=== PATIENT | female | born 1990 | race Caucasian/White ===

== ENCOUNTER 2018-08-08 21:39 | Emergency (ER) | payer OTHER ==
[~2018-08-08] VITALS: Ht 160 cm; Wt 57.1 kg
[2018-08-08] MEDS ORDERED: BUTALB-APAP-CA1 EACH PO (22:04)
[2018-08-08] MEDS ORDERED: NEURONTIN 300300 M1 PO (22:04)
[2018-08-08] MEDS ORDERED: ELFOLATE7.5 MG PO (22:04)
[2018-08-08] MEDS ORDERED: WELLBUTRIN SR150 MG PO (22:05)
[2018-08-08 22:32] LABS: URINE BILIRUBIN NEGATIVE (Negative); URINE BLOOD NEGATIVE (Negative); URINE CLARITY CLEAR; URINE COLOR YELLOW; URINE GLUCOSE-RANDOM NEGATIVE (Negative); URINE KETONES NEGATIVE (Negative); URINE LEUKOCYTES-REFLEX NEGATIVE (Negative); URINE NITRITE-REFLEX NEGATIVE (Negative); URINE PROTEIN NEGATIVE (Negative); URINE SPECIFIC GRAVITY 1.015 (1.005-1.030); URINE UROBILINOGEN 0.2 E.U./dl (0.2-1.0)
[2018-08-08 22:53] LABS: ABSOLUTE EOSINOPHILS 0.1 thou/uL (0.0-0.7); ABSOLUTE LYMPHOCYTES 2.7 thou/uL (0.8-5.3); ABSOLUTE MONOCYTES 0.4 thou/uL (0.0-1.2); ABSOLUTE NEUTROPHILS 3.5 thou/uL (1.6-8.1); BASOPHILS 0.6 %; EOSINOPHILS 1.5 %; HEMOGLOBIN 15.2 gm/dL (12.0-15.0); LYMPHOCYTES 39.4 %; MCHC 34.5 g/dL (28.0-37.0); MCV 89.8 fL (80.0-100.0); MONOCYTES 6.1 %; MPV 9.9 fl. (7.2-11.1); NUCLEATED RBCS 0 /100WBC; PLATELET COUNT* 242 thou/uL (150-400); POLYS 52.4 %; RDW-CV 12.4 % (10.5-14.5); WBC 6.8 thou/uL (4.0-11.0)
[2018-08-08 23:11] LABS: CREATININE 1.1 mg/dL (0.6-1.3); POTASSIUM 3.3 mmol/L (3.5-5.1)
[2018-08-08 23:16] LABS: ALBUMIN 4.2 g/dL (3.4-5.0); TOTAL BILIRUBIN 0.3 mg/dL (<0.1-1.0); TOTAL PROTEIN 7.3 g/dL (6.4-8.2)
[2018-08-09] MEDS ORDERED: ZOFRAN ODT4 MG SUBLING (00:24)
[2018-08-09 00:35] VITALS: BP 118/48
[2018-08-09 01:09] LABS: AMP/METHAMP Negative (Negative); BARBITURATES POSITIVE (Negative); BENZODIAZEPINES Negative (Negative); COCAINE Negative (Negative); METHADONE Negative (Negative); OPIATES Negative (Negative); PCP Negative (Negative); THC POSITIVE (Negative)
== END 2018-08-09 00:35 | disposition home or self-care (01) ==
LOC: M.ERS 21:39
PROVIDERS: Family Medicine
DX: R10.13 Epigastric pain (principal); R11.2 Nausea with vomiting, unspecified; R19.7 Diarrhea, unspecified; M79.7 Fibromyalgia; F41.9 Anxiety disorder, unspecified; F32.9 Major depressive disorder, single episode, unspecified; G43.909 Migraine, unspecified, not intractable, without status migrainosus; Z79.899 Other long term (current) drug therapy

== ENCOUNTER 2019-06-29 13:01 | Emergency (ER) | payer OTHER ==
[~2019-06-29] VITALS: Ht 157.5 cm; Wt 60.3 kg
[~2019-06-29 13:01] MED LIST: BUTALB-APAP-CA1 EACH PO; ELFOLATE7.5 MG PO; NEURONTIN 300300 M1 PO; WELLBUTRIN SR150 MG PO; ZOFRAN ODT4 MG SUBLING
[2019-06-29] MEDS ORDERED: AUGMENTIN 875-1 EACH PO (13:18)
[2019-06-29 14:01] LABS: ABSOLUTE EOSINOPHILS 0.2 thou/uL (0.0-0.7); ABSOLUTE LYMPHOCYTES 1.4 thou/uL (0.8-5.3); ABSOLUTE MONOCYTES 0.4 thou/uL (0.0-1.2); ABSOLUTE NEUTROPHILS 8.1 thou/uL (1.6-8.1); BASOPHILS 0.3 %; EOSINOPHILS 2.5 %; HEMATOCRIT 46.9 % (37.0-47.0); HEMOGLOBIN 16.2 gm/dL (12.0-15.0); LYMPHOCYTES 13.9 %; MCHC 34.6 g/dL (28.0-37.0); MCV 86.8 fL (80.0-100.0); MONOCYTES 3.8 %; MPV 9.7 fl. (7.2-11.1); NUCLEATED RBCS 0 /100WBC; PLATELET COUNT* 302 thou/uL (150-400); POLYS 79.5 %; RBC 5.41 mil/uL (4.20-5.00); RDW-CV 12.9 % (10.5-14.5); WBC 10.1 thou/uL (4.0-11.0)
[2019-06-29 14:11] LABS: URINE BLOOD NEGATIVE (Negative); URINE CLARITY CLOUDY; URINE COLOR YELLOW; URINE GLUCOSE-RANDOM NEGATIVE (Negative); URINE KETONES NEGATIVE (Negative); URINE LEUKOCYTES-REFLEX NEGATIVE (Negative); URINE NITRITE-REFLEX NEGATIVE (Negative); URINE PROTEIN 1+ (Negative); URINE SPECIFIC GRAVITY >= 1.030 (1.005-1.030); URINE UROBILINOGEN 0.2 E.U./dl (0.2-1.0)
[2019-06-29 14:13] LABS: CALCIUM 9.2 mg/dL (8.5-10.1); CREATININE 0.9 mg/dL (0.6-1.3); POTASSIUM 3.5 mmol/L (3.5-5.1)
[2019-06-29 14:15] LABS: ICTOTEST (BILI CONFIRMATORY) Negative (Negative); URINE BILIRUBIN 1+ (Negative)
[2019-06-29 14:18] LABS: ALBUMIN 4.4 g/dL (3.4-5.0); TOTAL BILIRUBIN 0.2 mg/dL (<0.1-1.0); TOTAL PROTEIN 8.4 g/dL (6.4-8.2)
[2019-06-29] MEDS ORDERED: ZOFRAN 4 MG ORAL4 MG PO (15:35)
[2019-06-29 15:46] VITALS: BP 132/89
== END 2019-06-29 15:46 | disposition home or self-care (01) ==
LOC: M.ERS 13:01
PROVIDERS: Nurse Practitioner Family
DX: A08.4 Viral intestinal infection, unspecified (principal); K59.00 Constipation, unspecified; R11.2 Nausea with vomiting, unspecified; G43.909 Migraine, unspecified, not intractable, without status migrainosus; M79.7 Fibromyalgia; R41.9 Unspecified symptoms and signs involving cognitive functions and awareness; F32.9 Major depressive disorder, single episode, unspecified; F12.10 Cannabis abuse, uncomplicated

== ENCOUNTER 2020-04-05 21:03 | Emergency (ER) | payer OTHER ==
[~2020-04-05] VITALS: Ht 160 cm; Wt 59.0 kg
[~2020-04-05 21:03] MED LIST changes: +AUGMENTIN 875-1 EACH PO; +ZOFRAN 4 MG ORAL4 MG PO
[2020-04-05] MEDS ORDERED: FLEXERIL PO (21:14)
[2020-04-05] MEDS ORDERED: AMITRIPTYLINE H75 M2 PO (21:14)
[2020-04-05] MEDS ORDERED: PAXIL10 MG PO (21:15)
[2020-04-05 21:38] LABS: ABSOLUTE BASOPHILS 0.1 thou/uL (0.0-0.2); ABSOLUTE EOSINOPHILS 0.1 thou/uL (0.0-0.7); ABSOLUTE MONOCYTES 0.6 thou/uL (0.0-1.2); ABSOLUTE NEUTROPHILS 3.8 thou/uL (1.6-8.1); BASOPHILS 0.8 %; EOSINOPHILS 1.9 %; HEMATOCRIT 42.5 % (37.0-47.0); HEMOGLOBIN 15.1 gm/dL (12.0-15.0); LYMPHOCYTES 30.7 %; MCH 31.6 pg (26.0-34.0); MCHC 35.5 g/dL (28.0-37.0); MONOCYTES 8.7 %; MPV 8.9 fl. (7.2-11.1); NUCLEATED RBCS 0 /100WBC; PLATELET COUNT* 244 thou/uL (150-400); POLYS 57.9 %; RBC 4.77 mil/uL (4.20-5.00); RDW-CV 12.6 % (10.5-14.5); WBC 6.6 thou/uL (4.0-11.0)
[2020-04-05 21:49] LABS: URINE BILIRUBIN NEGATIVE (Negative); URINE BLOOD NEGATIVE (Negative); URINE CLARITY CLEAR; URINE COLOR YELLOW; URINE GLUCOSE-RANDOM NEGATIVE (Negative); URINE KETONES NEGATIVE (Negative); URINE LEUKOCYTES-REFLEX NEGATIVE (Negative); URINE NITRITE-REFLEX NEGATIVE (Negative); URINE PROTEIN NEGATIVE (Negative); URINE UROBILINOGEN 0.2 E.U./dl (0.2-1.0)
[2020-04-05 21:52] LABS: CALCIUM 8.9 mg/dL (8.5-10.1); POTASSIUM 3.1 mmol/L (3.5-5.1)
[2020-04-05 22:02] LABS: ALBUMIN 4.3 g/dL (3.4-5.0); TOTAL BILIRUBIN 0.3 mg/dL (<0.1-1.0); TOTAL PROTEIN 7.7 g/dL (6.4-8.2)
[2020-04-05 22:03] LABS: AMP/METHAMP POSITIVE (Negative); BARBITURATES POSITIVE (Negative); BENZODIAZEPINES Negative (Negative); COCAINE Negative (Negative); METHADONE Negative (Negative); OPIATES Negative (Negative); PCP Negative (Negative); THC POSITIVE (Negative)
[2020-04-05 22:59] VITALS: BP 117/72
--- NOTE | 2020-04-06 10:57 | EKG ---
[place] [address] ELECTROCARDIOGRAM REPORT Name: SONAM ZAMUDIO Room: 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1990 Requested By: Prabhu Andrews Order Number: [id number] MD: Santos Good Measurements Intervals [place] Rate: 119 P: 62 UT: 151 QRS: -39 QRSD: 81 T: 55 QT: 348 QTc: 490 Interpretive Statements Sinus tachycardia Left axis deviation Low voltage, precordial leads Borderline repolarization abnormality Borderline prolonged QT interval Baseline wander in lead(s) II No previous ECG available for comparison Electronically Signed On 04-06-2020 10:57:44 CDT by Santos Good [email or web address] <ELECTRONICALLY SIGNED> By: Santos Good MD, [facility] 04/06/20 1057 09 09 Santos Good MD, [facility] /EPI
== END 2020-04-05 22:59 | disposition home or self-care (01) ==
LOC: M.ERS 21:03
PROVIDERS: Family Medicine
DX: F41.0 Panic disorder [episodic paroxysmal anxiety] (principal); M79.7 Fibromyalgia; G43.909 Migraine, unspecified, not intractable, without status migrainosus; F32.9 Major depressive disorder, single episode, unspecified

== ENCOUNTER 2020-06-27 09:59 | Emergency (ER) | payer OTHER ==
[~2020-06-27] VITALS: Ht 160 cm; Wt 63.0 kg
[~2020-06-27 09:59] MED LIST changes: +AMITRIPTYLINE H75 M2 PO; +FLEXERIL PO; +PAXIL10 MG PO
[2020-06-27] MEDS ORDERED: TRAMADOL 50 MG50 MG PO (11:01)
[2020-06-27] MEDS ORDERED: AMOXICILLIN 50500 MG PO (11:01)
[2020-06-27 11:05] VITALS: BP 122/72
== END 2020-06-27 11:06 | disposition home or self-care (01) ==
LOC: M.ERS 09:59
DX: J32.9 Chronic sinusitis, unspecified (principal); Z20.828 Contact with and (suspected) exposure to other viral communicable diseases; G43.909 Migraine, unspecified, not intractable, without status migrainosus; M79.7 Fibromyalgia; Z79.899 Other long term (current) drug therapy